=== PATIENT | male | born 1935 | race Caucasian/White ===

== ENCOUNTER → 2017-08-20 | Day surgery (SDC) | payer OTHER ==
[2017-08-11 11:09] VITALS: Ht 177.8 cm; Wt 90.9 kg
[~2017-08-20] VITALS: Ht 177.8 cm; Wt 90.9 kg
[~2017-08-20] MED LIST: ATROPINE SULFATE 0.1 MG/ML 5ML SYR IV PRN; CEFAZOLIN 2000MG IV PUSH 15 ML IV SCH; EpHEDrine SULFATE INJ 50 MG/ML AMP IV PRN; FENTANYL CITRATE INJ 50 MCG/1 ML 2 ML VIAL IV PRN; FENTANYL CITRATE INJ 50 MCG/1 ML 2 ML VIAL ONE; FLUMAZENIL 0.1 MG/1 ML 10 ML VIAL IV PRN; HYDROmorphone INJ 2 MG/ML SYR/VIAL IV PRN; LABETALOL HCL IV 5 MG/ML 20ML IV PRN; LACTATED RINGER'S 1000ML 1,000 ML IV SCH; LEVO50TA6 PO; LIDOCAINE 2% 20 MG/ML 5ML SYR IV ONE; LIDOCAINE HCL 2% 2 ML VIAL (20MG/ML) ONE; LIDOCAINE HCL 2% LOCAL 20 ML VIAL ONE; MEPERIDINE HCL 25 MG/ML CARP IV PRN; NALOXONE HCL 0.4 MG/1 ML VIAL/CARP IV PRN; NURSING VERBAL MED ORDER ONE; ONDANSETRON INJ 2 MG/ML 2 ML VIAL IV PRN; PHENYLEPHRINE 100MCG/ML 5ML SYR IV PRN; PROPOFOL IV EMULSION 10 MG/ML 20 ML VIAL IV ONE; SODIUM CHLORIDE 0.9% 1000ML 1,000 ML IV SCH; TRAM-453 PO; TRAMADOL HCL 50 MG TAB PO PRN; VITAMIN B12 PO
--- NOTE | 2017-08-20 06:45 | History & Physical Bridge - SC ---
H&P Re-Evaluation Bridge Note: I have examined the patient, reviewed the History & Physical and in the interval since the performance of the History & Physical I have noted the following changes of clinical significance: No changes noted
--- NOTE | 2017-08-20 07:23 | [facility] Post Operative Brief Note ---
Immediate Operative Summary Operative Date Aug 20, 2017. Pre-Operative Diagnosis Left Carpal Tunnel Syndrome Post-Operative Diagnosis same Procedure(s) Performed Left Carpal Tunnel Release Surgeon Dr. Lofton Screen Printing Machine Loader Unloader Surgeon(s) Tereso Clarke PA-C Estimated Blood Loss 0ML Findings Consistent with Post-Op Diagnosis Specimens none Anesthesia Type MAC Complication(s) none Disposition Disposition: Recovery Room / PACU
[2017-08-20 07:25] VITALS: TEMP 37.2
--- NOTE | 2017-08-20 07:26 | Discharge Instructions-SurgCtr ---
Discharge Instructions Date of Service Aug 20, 2017. Visit Reason for Visit: Left Carpal Tunnel Syndrome Discharge Discharge Diagnosis / Problem: LEFT CARPAL TUNNEL SYNDROME Discharge Goals Goal(s): Decrease discomfort, Therapeutic intervention Activity Recommendations Activity Limitations: per Instructions/Follow-up section Anesthesia . Post Anesthesia Instructions: If you have had General Anesthesia or IV Sedation: * Do not drive today. * Resume driving when surgeon permits. * Do not make important decisions or sign legal documents today. * Call surgeon for: 1. Temperature elevations greater than 101 degrees F. 2. Uncontrollable pain. 3. Excessive bleeding. 4. Persistent nausea and vomiting. 5. Medication intolerance (nausea, vomiting or rash). * For nausea and vomiting use only clear liquids such as: tea, soda, bouillon until nausea subsides, then gradually increase diet as tolerated. * If you have any concerns or questions, call your surgeon's office. If physician is unavailable and it is an emergency, call 911 or go to the nearest emergency room. . Instructions / Follow-Up Instructions / Follow-Up MEDICATIONS: * Resume previous medications unless instructed otherwise by your surgeon. * Always take pain medication on a full stomach or with food to avoid upset stomach. * Do not drink alcohol or drive while taking narcotics. * Ibuprofen or Tylenol may be taken if narcotic not needed. SPECIAL CARE INSTRUCTIONS: __ None __ Keep extremity elevated and iced x 48 hours; apply ice 20-30 minutes 8-10 times/day. May remove at night. __ Sling __24 hrs/day __ Remove at night __ Shoulder Immobilizer __ 24 hrs/day __ Remove at night _X_ Dressing __ Maintain until seen in office, may shower with plastic over site _X_ Remove dressings in 5 DAYS _X_ Cover incisions with band-aids after showering __ Do not remove steri-strips Call physician if chills or temperature rises above 102 degrees or pain unrelieved by prescribed pain medications at . . FOLLOW UP SCHEDULED Diet Recommendations Home Diet: resume previous diet Procedures Procedures Performed: Left Carpal Tunnel Release Pending Studies Studies pending at discharge: no Medical Emergencies . Who to Call and When: Medical Emergencies: If at any time you feel your situation is an emergency, please call 911 immediately. . Non-Emergent Contact Non-Emergency issues call your: Surgeon . . "Provider Documentation" section prepared by Ruben Clarke. .
--- NOTE | 2017-08-20 07:36 | Anesthesia Progress Nt - [facility] ---
Anesthesia Post Op Note Date & Time Aug 20, 2017 at 07:36 Vital Signs Pain Intensity: 0 Vital Signs Past 12 Hours Date Time Temp Pulse Resp B/P (MAP) Pulse Ox O2 Delivery O2 Flow Rate FiO2 08/20/17 07:25 37.2 76 18 154/84 (107) 94 Room Air 08/20/17 06:30 36.9 84 16 170/99 (122) 94 Room Air Notes Mental Status: alert / awake / arousable, participated in evaluation Pt Amnestic to Procedure: Yes Nausea / Vomiting: adequately controlled Pain: adequately controlled Airway Patency, RR, SpO2: stable & adequate BP & HR: stable & adequate Hydration State: stable & adequate Anesthetic Complications: no major complications apparent
[2017-08-20 08:05] VITALS: BP 197/89; PULSE 64; O2SAT 95
--- NOTE | 2017-08-20 16:20 | OPERATIVE REPORT ---
DATE OF OPERATION: 08/20/2017 PREOPERATIVE DIAGNOSIS: Carpal tunnel syndrome of the left wrist. POSTOPERATIVE DIAGNOSIS: Same. PROCEDURE: Open left carpal tunnel release. SURGEON: Dr. Dickson Lofotn. HARNESS AND BAG INSPECTOR: Tereso Clarke PA-C, whose assistance was necessary for retraction and closure. ANESTHESIA: Local with sedation. COMPLICATIONS: None. CONDITION: Stable to PACU. INDICATIONS: Tee is a pleasant 82-year-old male who presented to my office with chronic numbness in his left hand. EMG and clinical examination were diagnostic for carpal tunnel syndrome of the left hand. After failing conservative treatment, he elected to undergo open carpal tunnel release. On 08/20/2017 he arrived at [facility] for the above procedure. He was seen in the preoperative holding and the operative extremity was identified and signed. He was given a preoperative antibiotic and taken back to the operating room, laid on the table in supine position and put under basic sedation. The left hand and wrist was then prepped and draped in sterile fashion. Time-out was done. The patient and operative extremity was properly identified. The surgical site was anesthetized with 10 mL of lidocaine. A longitudinal incision was made directly over the transverse carpal ligament. Dissection was taken down through the palmar fascia and the transverse ligament was exposed. A knife and tenotomy scissors were then used to do a complete transection of the transverse carpal ligament. Care was taken to ensure complete proximal and distal release. The wound was then irrigated and closed with 4-0 nylon in a mattress fashion. He was then placed in a soft compressive dressing and taken to the post anesthesia care unit in stable condition. He tolerated the procedure well. I attest to the content of the Intraoperative Record and any orders documented therein. Any exception s are noted below.
== END | disposition home or self-care (01) ==
LOC: X.SURG 06:19
PROVIDERS: ATTEND Orthopaedic Surgery
DX: G56.02 Carpal tunnel syndrome, left upper limb (principal); N28.9 Disorder of kidney and ureter, unspecified; I10 Essential (primary) hypertension

== ENCOUNTER 2017-10-17 19:29 | Emergency (ER) | payer OTHER ==
[~2017-10-17] VITALS: Ht 177.8 cm; Wt 89.4 kg
[~2017-10-17 19:29] MED LIST changes: -ATROPINE SULFATE 0.1 MG/ML 5ML SYR IV PRN; -CEFAZOLIN 2000MG IV PUSH 15 ML IV SCH; -EpHEDrine SULFATE INJ 50 MG/ML AMP IV PRN; -FENTANYL CITRATE INJ 50 MCG/1 ML 2 ML VIAL IV PRN; -FENTANYL CITRATE INJ 50 MCG/1 ML 2 ML VIAL ONE; -FLUMAZENIL 0.1 MG/1 ML 10 ML VIAL IV PRN; -HYDROmorphone INJ 2 MG/ML SYR/VIAL IV PRN; -LABETALOL HCL IV 5 MG/ML 20ML IV PRN; -LACTATED RINGER'S 1000ML 1,000 ML IV SCH; -LIDOCAINE 2% 20 MG/ML 5ML SYR IV ONE; -LIDOCAINE HCL 2% 2 ML VIAL (20MG/ML) ONE; -LIDOCAINE HCL 2% LOCAL 20 ML VIAL ONE; -MEPERIDINE HCL 25 MG/ML CARP IV PRN; -NALOXONE HCL 0.4 MG/1 ML VIAL/CARP IV PRN; -NURSING VERBAL MED ORDER ONE; -ONDANSETRON INJ 2 MG/ML 2 ML VIAL IV PRN; -PHENYLEPHRINE 100MCG/ML 5ML SYR IV PRN; -PROPOFOL IV EMULSION 10 MG/ML 20 ML VIAL IV ONE; -SODIUM CHLORIDE 0.9% 1000ML 1,000 ML IV SCH; -TRAM-453 PO; -TRAMADOL HCL 50 MG TAB PO PRN
[2017-10-17 19:38] VITALS: TEMP 37; Ht 177.8 cm; Wt 89.4 kg
[2017-10-17] MEDS ORDERED: VTMB12100 PO (19:48)
[2017-10-17] MEDS ORDERED: ACETAMINOPHEN 500 MG TAB PO STA (20:12)
--- NOTE | 2017-10-17 21:02 | EMERGENCY ROOM VISIT NOTE ---
ED Visit Note First contact with patient: 19:53 CHIEF COMPLAINT: Right calf pain and swelling HISTORY OF PRESENTING ILLNESS: This is an 82-year-old male who presents to the emergency department with complaint of right calf pain and swelling for the past 2 days. Patient states initially that he started to have pain in the calf while he was out walking in the [place]. He states that the pain seems to come and go, and is worse with walking. Today the pain has been constant, and he has felt that his calf is more swollen than usual and also felt warm to the touch. He denies any redness. He denies any fevers or chills. He denies any chest pain, shortness of breath, or dizziness. He denies any recent immobilization, but states that he does sit a lot when he is at home. He denies any history of DVT. He states that he was going to wait until this coming week to see his family doctor, but he has a friend who is a nurse who told him he should be checked for a blood clot in the leg. He denies any symptoms of headache, vision changes, neck pain, back pain, abdominal pain, nausea or vomiting, bowel or bladder dysfunction, or unusual rash. REVIEW OF SYSTEMS: A complete 10 point review of systems was reviewed with the patient with pertinent positives and negatives as per history of present illness. All else were negative. PAST MEDICAL HISTORY: Hypothyroidism FAMILY HISTORY: No known family history of blood clots SOCIAL HISTORY: Lives at home. He denies tobacco use. ALLERGIES: Reviewed in chart PHYSICAL EXAM: CONSTITUTIONAL: Pleasant and cooperative. No acute distress. Well appearing and well nourished. HEENT: Normocephalic, atraumatic. Pupils equal, round and reactive to light, EOMI. TMs normal. Pharynx normal. NECK: Supple, full active range of motion without discomfort. RESPIRATORY: Clear to auscultation bilaterally with no wheezing, crackles, rhonchi or stridor. Equal expansion bilaterally. CARDIOVASCULAR: Regular rate and rhythm with no murmurs, rubs or gallops. Normal peripheral perfusion. No edema. GASTROINTESTINAL: Soft, nontender, nondistended. No palpable masses or HSM. Bowel sounds present in all quadrants. BACK: No midline tenderness of the thoracic or lumbar spine. No paraspinous muscle tenderness. Negative straight leg raise bilaterally. MUSCULOSKELETAL: Full range of motion of all joints without discomfort. There is swelling and tightness of the right calf when compared to the left, and tenderness to palpation of the posterior knee and calf. There is no erythema or ecchymosis noted. The right leg is not warm to touch compared to the left. Positive Homans sign in the right calf. INTEGUMENTARY: No rash or other significant dermatologic conditions noted. NEUROLOGIC: Alert and oriented X 4 with normal affect. 5/5 strength in all 4 extremities. Sensation intact to light touch in all 4 extremities. No focal neurologic deficits noted. Normal speech. ED COURSE AND MEDICAL DECISION MAKING: CC: Patient presenting with complaint of right calf pain and swelling. DIFFERENTIAL DIAGNOSIS: Includes, but not limited to DVT, muscle cramp/spasm, strain/sprain, sciatica, cellulitis, among others. IMAGING: R VENOUS DOPP LOWER EXT UNILAT CLINICAL HISTORY: 82 years-old Male presenting with calf pain, swelling, eval DVT. TECHNIQUE: Real-time grayscale and color and spectral Doppler ultrasound imaging of the veins of the right lower extremity was performed. Compression and augmentation were also utilized. COMPARISON: None. FINDINGS: Right: Common femoral vein: Nonocclusive appears occlusive at the level of the greater saphenous vein confluence. No thrombus above this level. Greater saphenous vein: Patent. Deep femoral vein: Patent. Femoral vein: Nonocclusive thrombus in the proximal renal vein. Thrombus appears occlusive within the mid to distal femoral vein. Popliteal vein: Occlusive thrombus in the popliteal vein. Calf veins: Occlusive thrombus in the anterior and posterior tibial and peroneal veins. Other: None. IMPRESSION: Extensive occlusive thrombus extending from calf veins to the level of the common femoral vein, where thrombus does not extend above the greater saphenous vein confluence and is nonocclusive at the site. MEDICATION RECONCILIATION: I attest that I have personally reviewed the patient 's current medication list. INITIAL VITAL SIGNS REVIEW: I reviewed the patient's initial vital signs and interpret them as follows: T: Afebrile; BP: Hypertensive; HR: Within normal limits; RR: Within normal limits; Pulse Ox: Within normal limits on room air. blood pressure screening: The patient was found to have an elevated blood pressure and was referred to their primary doctor for recheck and further treatment. SUMMARY: Patient was evaluated at bedside, history and physical exam performed. Patient is alert and oriented, no acute distress, resting calmly in stretcher. She has notable swelling to the right calf when compared to the left and is tender to palpation posteriorly, but no erythema or warmth to touch. Positive Homans sign of the right calf. Orders were placed at bedside for right calf ultrasound to evaluate for DVT. Patient was given Tylenol for pain. Patient discussed with Dr. Mcdonnell, who agrees with my assessment and plan. Imaging reviewed as above, noting an extensive acute DVT. Patient was updated on results, and plan for lab work to establish treatment for the blood clot. Patient continues to deny any chest pain, shortness of breath, or dizziness. Patient was signed out to Julianne Lin PA-C at change of shift, with plan to follow-up blood work and start patient on anticoagulation therapy pending results. Current/Historical Medications Scheduled Cyanocobalamin (Vitamin B-12), 1 TAB PO DAILY Levothyroxine Sodium (Levothyroxine Sodium), 1 TAB PO QAM Allergies Coded Allergies: Penicillins (Verified Allergy, Unknown, [place], A LONG TIME AGO, 10/17/17) Vital Signs Date Time Temp Pulse Resp B/P (MAP) Pulse Ox O2 Delivery O2 Flow Rate FiO2 10/17/17 21:13 84 18 177/84 94 Room Air 10/17/17 19:38 37.0 93 18 145/95 95 Room Air Laboratory Results Test 10/17/17 22:05 Medications Administered Medications (Trade) Dose Ordered Sig/Ruchi Route Start Time Stop Time Status Last Admin Dose Admin Acetaminophen (Tylenol Tab) 1,000 mg NOW STAT PO 10/17/17 20:12 10/17/17 20:16 DC 10/17/17 21:11 1,000 MG Departure Information Impression Primary Impression: Right leg DVT Dispostion Still a Patient Condition GOOD Referrals Lonnie Ramsey D.O. (PCP) Patient Instructions My [facility] Problem Qualifiers Primary Impression: Right leg DVT Affected thrombotic vein of extremity: femoral Chronicity: acute Qualified Codes: I82.411 - Acute embolism and thrombosis of right femoral vein
--- NOTE | 2017-10-17 22:06 | DIAGNOSTIC IMAGING REPORT ---
R VENOUS DOPP LOWER EXT UNILAT CLINICAL HISTORY: 82 years-old Male presenting with calf pain, swelling, eval DVT. TECHNIQUE: Real-time grayscale and color and spectral Doppler ultrasound imaging of the veins of the right lower extremity was performed. Compression and augmentation were also utilized. COMPARISON: None. FINDINGS: Right: Common femoral vein: Nonocclusive appears occlusive at the level of the greater saphenous vein confluence. No thrombus above this level. Greater saphenous vein: Patent. Deep femoral vein: Patent. Femoral vein: Nonocclusive thrombus in the proximal renal vein. Thrombus appears occlusive within the mid to distal femoral vein. Popliteal vein: Occlusive thrombus in the popliteal vein. Calf veins: Occlusive thrombus in the anterior and posterior tibial and peroneal veins. Other: None. IMPRESSION: Extensive occlusive thrombus extending from calf veins to the level of the common femoral vein, where thrombus does not extend above the greater saphenous vein confluence and is nonocclusive at the site. The report will be called/faxed according to standard departmental protocol. Electronically signed by: Darshan Antoine M.D. 10/17/2017 10:05 PM Dictated Date/Time: 10/17/2017 10:02 PM
[2017-10-17 22:35] LABS: BASO % 0.5 %; BASO ABS # 0.04 K/uL (0-0.2); EOS % 3.8 %; EOS ABS # 0.32 K/uL (0-0.5); HEMATOCRIT 45.8 % (42-52); HEMOGLOBIN 16.7 g/dL (14.0-18.0); IG# 0.05 K/uL (0.00-0.02); LYMPH % 23.6 %; LYMPH ABS # 1.98 K/uL (1.2-3.4); MEAN CELL VOLUME 90.7 fL (80-100); MEAN CORPUSCULAR HEMOGLOBIN 33.1 pg (25-34); MEAN CORPUSCULAR HGB CONC 36.5 g/dl (32-36); MEAN PLATELET VOLUME 8.8 fL (7.4-10.4); MONO % 9.1 %; MONO ABS # 0.76 K/uL (0.11-0.59); NEUT % 62.4 %; NEUT ABS # 5.23 K/uL (1.4-6.5); PLATELET COUNT 125 K/uL (130-400); RED CELL DISTRIBUTION WIDTH CV 12.6 % (11.5-14.5); RED CELL DISTRIBUTION WIDTH SD 41.8 fL (36.4-46.3); WHITE BLOOD COUNT 8.38 K/uL (4.8-10.8)
[2017-10-17 22:45] LABS: PTT PATIENT 27.3 SECONDS (21.0-31.0)
[2017-10-17 22:55] LABS: CALCIUM 9.1 mg/dl (8.5-10.1); CREATININE 1.33 mg/dl (0.60-1.40); POTASSIUM 4.3 mmol/L (3.5-5.1)
[2017-10-17 22:58] LABS: TOTAL PROTEIN 7.8 gm/dl (6.4-8.2)
[2017-10-17] MEDS ORDERED: APIXABAN 2.5 MG TAB PO STA ×2 (23:29→23:49)
--- NOTE | 2017-10-18 00:27 | EMERGENCY ROOM VISIT NOTE ---
ED Visit Note First contact with patient: 19:53 I reviewed the patient's past medical history, medications, and visit nursing notes. I discussed the case with the physician museum assistant, examined the patient, and agree with the findings and plan as documented in the physician assistants note.
[2017-10-18] MEDS ORDERED: APIX1TAB3 PO (00:40)
[2017-10-18 01:04] VITALS: BP 148/81; PULSE 84; O2SAT 95
--- NOTE | 2017-10-18 03:51 | EMERGENCY ROOM VISIT NOTE ---
ED Visit Note First contact with patient: 22:31 Case is signed out to me from Flory Hernandez NP, pending labs and reevaluation in stable condition. R VENOUS DOPP LOWER EXT UNILAT CLINICAL HISTORY: 82 years-old Male presenting with calf pain, swelling, eval DVT. TECHNIQUE: Real-time grayscale and color and spectral Doppler ultrasound imaging of the veins of the right lower extremity was performed. Compression and augmentation were also utilized. COMPARISON: None. FINDINGS: Right: Common femoral vein: Nonocclusive appears occlusive at the level of the greater saphenous vein confluence. No thrombus above this level. Greater saphenous vein: Patent. Deep femoral vein: Patent. Femoral vein: Nonocclusive thrombus in the proximal renal vein. Thrombus appears occlusive within the mid to distal femoral vein. Popliteal vein: Occlusive thrombus in the popliteal vein. Calf veins: Occlusive thrombus in the anterior and posterior tibial and peroneal veins. Other: None. IMPRESSION: Extensive occlusive thrombus extending from calf veins to the level of the common femoral vein, where thrombus does not extend above the greater saphenous vein confluence and is nonocclusive at the site. The report will be called/faxed according to standard departmental protocol. Electronically signed by: Darshan Antoine M.D. Patient had a stable H&H. Normal coags. GFR was 50.1. Stable creatinine. Patient had no recent GI bleeding. He has not had history of DVT or PE. Patient states he does not frequently fall. Patient states he walks without difficulties. Patient states he is a somewhat active gentleman. Patient was informed he needs to go on blood thinning medication for his DVT. I offered him the options of Eliquis, Xarelto or Coumadin. Patient would like to try the Eliquis. He was informed of the risks involved such as internal bleeding, allergic reaction and other side effects. He verbalized understanding of this. He was given his first dose of Eliquis in the ER. He was able to ambulate without difficulties. He was advised to take this as directed. He was given a coupon card for this. He was advised to follow-up family care in a few days for reevaluation or here in the ER sooner for chest pain, difficulty breathing, worsening signs or symptoms or as needed. Patient was neurovascularly neurologically intact. He denied any chest pain or difficulty breathing. He had no back pain. I felt it was reasonable to discharge him home. Patient was requesting to be discharged home also. Case reviewed with my attending. Diagnosis: #1 DVT right lower leg Discharge instructions: As below The chart was completed utilizing [employer] Speech voice recognition software. Grammatical errors, random word insertions, pronoun errors, and incomplete sentences are an occassional consequence of this system due to software limitations, ambient noise, and hardware issues. Any formal questions or concerns about the content, text, or information contained within the body of this dictation should be directly addressed to the physician human resources benefits assistant for clarification. Current/Historical Medications Scheduled Apixaban (Eliquis), 5 MG PO BID Apixaban (Eliquis), 10 MG PO BID Cyanocobalamin (Vitamin B-12), 1 TAB PO DAILY Levothyroxine Sodium (Levothyroxine Sodium), 1 TAB PO QAM Allergies Coded Allergies: Penicillins (Verified Allergy, Unknown, [place], A LONG TIME AGO, 10/17/17) Vital Signs Date Time Temp Pulse Resp B/P (MAP) Pulse Ox O2 Delivery O2 Flow Rate FiO2 10/18/17 01:04 84 18 148/81 95 10/17/17 23:11 75 10/17/17 22:37 76 18 152/95 94 Room Air 10/17/17 21:13 84 18 177/84 94 Room Air 10/17/17 19:38 37.0 93 18 145/95 95 Room Air Laboratory Results 10/17/17 22:25 Red Blood Count 5.05, Mean Corpuscular Volume 90.7, Mean Corpuscular Hemoglobin 33.1, Mean Corpuscular Hemoglobin Concent 36.5, Mean Platelet Volume 8.8, Neutrophils (%) (Auto) 62.4, Lymphocytes (%) (Auto) 23.6, Monocytes (%) (Auto) 9.1, Eosinophils (%) (Auto) 3.8, Basophils (%) (Auto) 0.5, Neutrophils # (Auto) 5.23, Lymphocytes # (Auto) 1.98, Monocytes # (Auto) 0.76, Eosinophils # (Auto) 0.32, Basophils # (Auto) 0.04 10/17/17 22:25 Test 10/17/17 22:25 White Blood Count 8.38 K/uL (4.8-10.8) Red Blood Count 5.05 M/uL (4.7-6.1) Hemoglobin 16.7 g/dL (14.0-18.0) Hematocrit 45.8 % (42-52) Mean Corpuscular Volume 90.7 fL (80-100) Mean Corpuscular Hemoglobin 33.1 pg (25-34) Mean Corpuscular Hemoglobin Concent 36.5 g/dl (32-36) Platelet Count 125 K/uL (130-400) Mean Platelet Volume 8.8 fL (7.4-10.4) Neutrophils (%) (Auto) 62.4 % Lymphocytes (%) (Auto) 23.6 % Monocytes (%) (Auto) 9.1 % Eosinophils (%) (Auto) 3.8 % Basophils (%) (Auto) 0.5 % Neutrophils # (Auto) 5.23 K/uL (1.4-6.5) Lymphocytes # (Auto) 1.98 K/uL (1.2-3.4) Monocytes # (Auto) 0.76 K/uL (0.11-0.59) Eosinophils # (Auto) 0.32 K/uL (0-0.5) Basophils # (Auto) 0.04 K/uL (0-0.2) RDW Standard Deviation 41.8 fL (36.4-46.3) RDW Coefficient of Variation 12.6 % (11.5-14.5) Immature Granulocyte % (Auto) 0.6 % Immature Granulocyte # (Auto) 0.05 K/uL (0.00-0.02) Prothrombin Time 10.7 SECONDS (9.0-12.0) Prothromb Time International Ratio 1.0 (0.9-1.1) Activated Partial Thromboplast Time 27.3 SECONDS (21.0-31.0) Partial Thromboplastin Ratio 1.1 Anion Gap 7.0 mmol/L (3-11) Est Creatinine Clear Calc Drug Dose 49.8 ml/min Estimated GFR () 58.1 Estimated GFR (Non- 50.1 BUN/Creatinine Ratio 16.2 (10-20) Calcium Level 9.1 mg/dl (8.5-10.1) Total Bilirubin 0.9 mg/dl (0.2-1) Aspartate Amino Transf (AST/SGOT) 21 U/L (15-37) Alanine Aminotransferase (ALT/SGPT) 25 U/L (12-78) Alkaline Phosphatase 103 U/L (45-117) Total Protein 7.8 gm/dl (6.4-8.2) Albumin 4.0 gm/dl (3.4-5.0) Globulin 3.8 gm/dl (2.5-4.0) Albumin/Globulin Ratio 1.1 (0.9-2) Medications Administered Medications (Trade) Dose Ordered Sig/Ruchi Route Start Time Stop Time Status Last Admin Dose Admin Acetaminophen (Tylenol Tab) 1,000 mg NOW STAT PO 10/17/17 20:12 10/17/17 20:16 DC 10/17/17 21:11 1,000 MG Apixaban (Eliquis Tab) 10 mg NOW STAT PO 10/17/17 23:49 10/17/17 23:51 DC 10/18/17 00:05 10 MG Departure Information Impression Primary Impression: Right leg DVT Dispostion Home / Self-Care Condition GOOD Prescriptions Apixaban (ELIQUIS) 5 Mg Tab 10 MG PO BID for 7 Days, #28 TAB Prov: Liliana Lin .SUDHAKAR 10/18/17 Apixaban (ELIQUIS) 5 Mg Tab 5 MG PO BID for 21 Days, #42 TAB Prov: Liliana Lin PA-C 10/18/17 Referrals Lonnie Ramsey D.O. (PCP) Forms HOME CARE DOCUMENTATION FORM, IMPORTANT VISIT INFORMATION Patient Instructions DVT, My [facility] Additional Instructions Eliquis 5 m tablets twice a day for 1 week then 1 tablet twice a day. Any medication can cause an allergic reaction, stop the pills immediately and return to the ER for rash, hives, breathing difficulties, or swelling. This medication increases your risk for bleeding. If you hit your head, you need to be evaluated immediately for possible bleeding into the brain. If you notice unexplained bleeding that he need to seek medical attention. Rest and drink plenty of fluids. Avoid strenuous activity until your symptoms resolve. Continue current medications. Return to the ER for chest pain, difficulty breathing, fevers, vomiting, severe pain, worsening of your condition, or as needed. Follow-up with family care in 2-3 days.
== END 2017-10-18 01:05 | disposition home or self-care (01) ==
LOC: C.EDB 19:31 → C.EDA 10-18 01:05
DX: I82.411 Acute embolism and thrombosis of right femoral vein (principal); R03.0 Elevated blood-pressure reading, without diagnosis of hypertension; Z88.0 Allergy status to penicillin